=== PATIENT | female | born 1980 | race Caucasian/White ===

== ENCOUNTER 2020-10-17 08:55 | Observation (INO) | payer OTHER ==
[~2020-10-17] VITALS: Ht 165.1 cm; Wt 85.7 kg
[2020-10-17 09:32] VITALS: BP 124/75
[2020-10-17] MEDS ORDERED: CALC-1038 PO (09:35)
[2020-10-17] MEDS ORDERED: METF-960 PO (09:35)
[2020-10-17] MEDS ORDERED: PREN-217 PO (09:35)
[2020-10-17 10:43] LABS: GLUCOMETER DEV NAME(LOC) 4S.; GLUCOSE,POINT OF CARE 90 MG/DL (70-110)
== END 2020-10-17 10:55 | disposition home or self-care (01) ==
LOC: 4S 08:55
PROVIDERS: ADMIT Obstetrics & Gynecology; ATTEND Obstetrics & Gynecology
DX: O24.419 Gestational diabetes mellitus in pregnancy, unspecified control (principal); Z3A.38 38 weeks gestation of pregnancy
CPT/HCPCS: 59025; 83036; 99219

== ENCOUNTER 2020-10-17 11:45 | Inpatient (IN) | payer OTHER ==
[~2020-10-17] VITALS: Ht 165.1 cm; Wt 86.6 kg
[~2020-10-17 11:45] MED LIST: CALC-1038 PO; METF-960 PO; PREN-217 PO
[2020-10-26] MEDS ORDERED: RINGERS SOLUTION,LACTATED 1,000 ML IV PRN (11:45)
[2020-10-26] MEDS ORDERED: FentaNYL CITRATE PF 100 MCG/2 ML VIAL IVP PRN (11:45)
[2020-10-26] MEDS ORDERED: METHYLERGONOVINE MALEATE 0.2 MG/ML VIAL IM PRN (11:45)
[2020-10-26] MEDS ORDERED: METOCLOPRAMIDE HCL 5 MG/ML 2 ML VIAL IVP PRN (11:45)
[2020-10-26] MEDS ORDERED: CITRIC ACID/SODIUM CITRATE 30 ML SOLUTION UDCUP PO PRN (11:45)
[2020-10-26] MEDS ORDERED: OXYTOCIN 30 UNITS/LACT RINGERS 500 ML IV ONE (11:45)
[2020-10-26] MEDS: RINGERS SOLUTION,LACTATED 1,000 ML IV SCH ×2 (12:52→20:12)
[2020-10-26 12:57] LABS: BASOPHILS % (AUTO) 0.5 % (0.0-2.0); EOSINOPHILS % (AUTO) 0.2 % (1.0-6.0); HEMATOCRIT 38.2 % (36-46); HEMOGLOBIN 12.8 g/dL (12.0-16.0); LYMPHOCYTES # (AUTO) 1.5 K/uL (1.0-4.8); MEAN CORPUSCULAR HEMOGLOBIN 30.7 pg (26.0-34.0); MEAN CORPUSCULAR HGB CONC 33.6 G/dL (31.0-37.0); MEAN CORPUSCULAR VOLUME 92 fL (80-100); MONOCYTES # (AUTO) 0.5 K/uL (0.1-1.0); MONOCYTES % (AUTO) 7.5 % (2.0-9.0); NEUTROPHILS # (AUTO) 4.1 K/uL (1.8-7.7); NEUTROPHILS % (AUTO) 67.8 % (40.0-70.0); PLATELET COUNT (AUTO) 114 K/uL (150-450); RED BLOOD CELL COUNT(AUTO) 4.17 MIL/uL (4.00-5.20); RED CELL DISTRIBUTION WIDTH 13.4 % (11.5-14.5)
[2020-10-26] MEDS ORDERED: DINOPROSTONE 10 MG VAGINAL SUPPOSITORY VG ONE (13:00)
[2020-10-26 13:04] VITALS: BP 136/72
[2020-10-26 13:25] LABS: HEMOGLOBIN A1C 5.5 % (3.8-5.6)
[2020-10-26 13:59] LABS: COVID AG,FIA SOURCE NASOPHARYNGEAL
[2020-10-26] MEDS ORDERED: INFLUENZA VIRUS VACCINE QVS 2020-21 (6MO+)/PF 60 MCG/0.5 ML SYRINGE IM ONE (14:30)
[2020-10-26 19:09] LABS: GLUCOMETER DEV NAME(LOC) 4S.; GLUCOSE,POINT OF CARE 93 MG/DL (70-110)
[2020-10-26] MEDS ORDERED: OXYGEN THERAPY IH SCH (20:00)
[2020-10-27] MEDS ORDERED: -PHARMACY NOTE- MISC ONE (00:15)
[2020-10-27] MEDS ORDERED: MISOPROSTOL 50 MCG TABLET PO ONE ×2 (02:15→06:00)
[2020-10-27] MEDS: RINGERS SOLUTION,LACTATED 1,000 ML IV SCH (05:28)
[2020-10-27] MEDS ORDERED: OXYTOCIN 30 UNITS/LACT RINGERS 500 ML IV ONE (07:56)
[2020-10-27] MEDS ORDERED: NALBUPHINE HCL 10 MG/ML VIAL IVP PRN ×2 (14:15)
[2020-10-27] MEDS ORDERED: ONDANSETRON HCL 4 MG/2 ML VIAL IVP PRN ×2 (14:15→14:30)
[2020-10-27] MEDS ORDERED: NALOXONE HCL 0.4 MG/ML VIAL IVP PRN (14:15)
[2020-10-27] MEDS ORDERED: MORPHINE SULFATE 10 MG/ML SYRINGE IVP PRN (14:15)
[2020-10-27] MEDS ORDERED: FentaNYL CITRATE PF 100 MCG/2 ML VIAL IVP PRN ×2 (14:15→14:30)
[2020-10-27] MEDS ORDERED: DiphenhydrAMINE HCL 50 MG/ML VIAL IVP PRN (14:15)
[2020-10-27] MEDS ORDERED: FentaNYL CITRATE PF 100 MCG/2 ML VIAL ONE (15:22)
[2020-10-27] MEDS ORDERED: MORPHINE SULFATE/PF 1 MG/ML 10 ML AMP ONE (15:23)
[2020-10-27] MEDS ORDERED: ACETAMINOPHEN 1000 MG/ISO-OSM 100 ML IV ONE (15:23)
[2020-10-27] MEDS ORDERED: BUPIVACAINE HCL/DEX-WATER/PF 0.75% 2 ML AMP ITH ONE (15:23)
[2020-10-27] MEDS ORDERED: LANOLIN 7 GM OINTMENT TP PRN (16:30)
[2020-10-27] MEDS ORDERED: ACETAMINOPHEN/CODEINE 300-30 MG TABLET PO PRN ×2 (16:30)
[2020-10-27] MEDS ORDERED: DEXTROSE 5%-0.45% SODIUM CHL 1,000 ML IV ONE (17:42)
[2020-10-27] MEDS: DEXTROSE 5%-0.45% SODIUM CHL 1,000 ML IV SCH ×2 (17:45→22:04)
[2020-10-27] MEDS ORDERED: OXYGEN THERAPY IH SCH ×2 (20:00)
[2020-10-27] MEDS ORDERED: ACETAMINOPHEN 1000 MG/ISO-OSM 100 ML IV SCH (21:30)
[2020-10-27] MEDS: MAGNESIUM HYDROXIDE SUSPENSION 30 ML UDCUP PO SCH (22:02)
[2020-10-28] MEDS: DEXTROSE 5%-0.45% SODIUM CHL 1,000 ML IV SCH ×2 (01:45→05:42)
[2020-10-28] MEDS: MAGNESIUM HYDROXIDE SUSPENSION 30 ML UDCUP PO SCH ×2 (09:20→21:48)
[2020-10-28] MEDS: IBUPROFEN 800 MG TABLET PO SCH ×3 (09:24→21:49)
[2020-10-28 14:45] VITALS: BP 117/70
[2020-10-29] MEDS: IBUPROFEN 800 MG TABLET PO SCH ×4 (06:32→23:56)
[2020-10-29] MEDS ORDERED: ONDANSETRON HCL 4 MG/2 ML VIAL IVP ONE (06:34)
[2020-10-29] MEDS ORDERED: EPINEPHrine 1:1,000 [1 MG/ML] AMP IM ONE (06:34)
[2020-10-29] MEDS ORDERED: EPHEDrine SULFATE 50 MG/ML VIAL IM ONE (06:34)
[2020-10-29] MEDS ORDERED: OXYTOCIN 10 UNITS/ML VIAL IM ONE (06:34)
[2020-10-29] MEDS ORDERED: KETOROLAC TROMETHAMINE 60 MG/2 ML VIAL IM ONE (06:34)
[2020-10-29] MEDS ORDERED: DEXAMETHASONE SOD PHOS 4 MG/ML VIAL IVP ONE (06:34)
[2020-10-29] MEDS: MAGNESIUM HYDROXIDE SUSPENSION 30 ML UDCUP PO SCH ×2 (09:00→20:41)
[2020-10-30] MEDS: IBUPROFEN 800 MG TABLET PO SCH (06:50)
[2020-10-30] MEDS: MAGNESIUM HYDROXIDE SUSPENSION 30 ML UDCUP PO SCH (08:28)
[2020-10-30] MEDS ORDERED: IBUP-2071 PO (10:13)
== END 2020-10-30 11:15 | disposition home or self-care (01) | DRG 788 ==
LOC: EDSTATUS 11:45 → UNDOADMOB 10-26 11:30 → 4S 10-26 11:30
PROVIDERS: ADMIT Obstetrics & Gynecology; ATTEND Obstetrics & Gynecology
PROC: 10D00Z1 Extraction of Products of Conception, Low, Open Approach (ICD-10-PCS; principal; 2020-10-27)
DX: O76 Abnormality in fetal heart rate and rhythm complicating labor and delivery (principal); O24.429 Gestational diabetes mellitus in childbirth, unspecified control; Z20.822 Contact with and (suspected) exposure to COVID-19; Z3A.39 39 weeks gestation of pregnancy; Z37.0 Single live birth
CPT/HCPCS: 59200; 82947; 83036; 85461; 86850; 86870; 86900; 86901; 87081; 87426; 99219; A9575; J0131; J0171; J0690; J1100; J1885; J2405; J2590; J2765; J3010; J3490; J7120